=== PATIENT | male | born 1955 | race African-American/Black ===

== ENCOUNTER → 2017-11-16 | Outpatient (CLI) | payer OTHER | END | disposition home or self-care (01) | LOC: US 06:44 | DX: B19.20 Unspecified viral hepatitis C without hepatic coma (principal); N28.1 Cyst of kidney, acquired | CPT/HCPCS: 76700 ==

== ENCOUNTER 2019-03-11 07:13 | Emergency (ER) | payer OTHER ==
[~2019-03-11] VITALS: Ht 180.3 cm; Wt 86.2 kg
[2019-03-11 07:26] VITALS: BP 216/103
[2019-03-11] MEDS ORDERED: TETRACAINE 0.5% OPHTH SOLUTION 4ML BOTTLE. OD ONE (07:45)
[2019-03-11] MEDS ORDERED: FLUORESCEIN OPHTH TEST STRIP. OD ONE (07:45)
[2019-03-11] MEDS ORDERED: OFLO5DRO RIGHTEYE (08:21)
--- NOTE | 2019-03-11 08:21 | PHYS DOC ---
Past Medical History Past Medical History: Diabetes-Type II, Hypertension Past Surgical History: No Surgical History Additional Past Surgical Histo: Unknown Alcohol Use: Occasionally Drug Use: None Adult General Chief Complaint Chief Complaint: FOREIGN BODY/EYES HPI HPI Patient is a 63 year old male who presents with complaining of foreign body in right eye. Patient states he had accidentally splash of sand to right eye 4 days ago and dropped his eye and since then has foreign body sensation with erythema and edema of IUD and I lesion and discharge. Patient denies nausea and vomiting and fever and chills. Review of Systems Review of Systems Constitutional: Denies fever or chills [] Eyes: Reports change in visual acuity, redness, eye pain [] HENT: Denies nasal congestion or sore throat [] Respiratory: Denies cough or shortness of breath [] Cardiovascular: No additional information not addressed in HPI [] GI: Denies abdominal pain, nausea, vomiting, bloody stools or diarrhea [] : Denies dysuria or hematuria [] Musculoskeletal: Denies back pain or joint pain [] Integument: Denies rash or skin lesions [] Neurologic: Denies headache, focal weakness or sensory changes [] Endocrine: Denies polyuria or polydipsia [] All other systems were reviewed and found to be within normal limits, except as documented in this note. Current Medications Current Medications Current Medications Medications (Trade) Dose Ordered Sig/Andrea Start Time Stop Time Status Last Admin Dose Admin Fluorescein Sodium (Ful-Nadine) 1 strip 1X ONCE 03/11/19 07:45 03/11/19 07:46 DC 03/11/19 08:20 1 STRIP Tetracaine HCl (Tetracaine) 1 drop 1X ONCE 03/11/19 07:45 03/11/19 07:46 DC 03/11/19 08:20 1 DROP Allergies Allergies Allergies Coded Allergies Type Severity Reaction Last Updated Verified No Known Drug Allergies 03/13/14 No Physical Exam Physical Exam Constitutional: Well developed, well nourished, mild distress, non-toxic appearance. [] HENT: Normocephalic, atraumatic. Eyes: PERRLA, EOMI, right upper eyelid edema and erythema with right conjunctival injection, no foreign body, fluorescein test showed corneal abrasion .] Neck: Normal range of motion, no tenderness, supple, no stridor. [] Cardiovascular:Heart rate regular rhythm, no murmur [] Lungs & Thorax: Bilateral breath sounds clear to auscultation [] Neurologic: Alert and oriented X 3, normal motor function, normal sensory function, no focal deficits noted. [] Psychologic: Affect normal, judgement normal, mood normal. [] Current Patient Data Vital Signs Vital Signs Date Time Temp Pulse Resp B/P (MAP) Pulse Ox O2 Delivery O2 Flow Rate FiO2 03/11/19 07:26 98.6 59 17 216/103 (140) 97 Room Air 98.6 EKG EKG [] Radiology/Procedures Radiology/Procedures [] Course & Med Decision Making Course & Med Decision Making I've spoken with the patient and/or caregivers. I've explained the patient's condition, diagnosis and treatment plan based on information available to me at this time. I've answered the patient's and/or caregivers questions and addressed any concerns. The patient and/or caregivers have a good understanding the patient's diagnosis, condition and treatment plan as can be expected at this point. Vital signs have been stabilized. The patient's condition is stable for discharge from the emergency department. The patient will pursue further outpatient evaluation with her primary care provider or other designated consulting physician as outlined in the discharge instructions. Patient and/or caregivers are agreeable to this plan of care and follow-up instructions have been explained in detail. The patient and/or caregivers have received these instructions in written format and expressed understanding of these discharge instructions. The patient and her caregivers are aware that if any significant change in condition or worsening of symptoms should prompt him to immediately return to this of the closest emergency department. If an emergent department is not readily available I would encourage him to call 911. Selin Disclaimer Dragon Disclaimer This electronic medical record was generated, in whole or in part, using a voice recognition dictation system. Departure Departure Impression: Primary Impression: Corneal abrasion Additional Impression: Acute conjunctivitis, right eye Disposition: HOME, SELF-CARE (at 0819) Condition: IMPROVED Referrals: MARIANELA BERNARD MD (PCP) Patient Instructions: Bacterial Conjunctivitis, Eye - Corneal Abrasion Additional Instructions: Avoid of rubbing your eye Follow-up with your eye [facility] physician in 3-5 days Return to ER if not getting better Scripts Ofloxacin (OCUFLOX) 5 Ml Drops 2 DROP RIGHTEYE Q6HRS for 7 Days, #1 BOTTLE Prov: BRIANNA MITCHELL MD 03/11/19 Problem Qualifiers Primary Impression: Corneal abrasion Encounter type: initial encounter Laterality: right Qualified Codes: S05.01XA - Injury of conjunctiva and corneal abrasion without foreign body, right eye, initial encounter Additional Impression: Acute conjunctivitis, right eye Acute conjunctivitis type: unspecified Qualified Codes: H10.31 - Unspecified acute conjunctivitis, right eye BRIANNA MITCHELL MD Mar 11, 2019 08:21
== END 2019-03-11 08:30 | disposition home or self-care (01) ==
LOC: ER 07:13
DX: S05.01XA Injury of conjunctiva and corneal abrasion without foreign body, right eye, initial encounter (principal); H10.31 Unspecified acute conjunctivitis, right eye; E11.9 Type 2 diabetes mellitus without complications; I10 Essential (primary) hypertension; X58.XXXA Exposure to other specified factors, initial encounter; Y93.89 Activity, other specified; Y92.89 Other specified places as the place of occurrence of the external cause; Y99.8 Other external cause status
CPT/HCPCS: 99283